=== PATIENT | male | born 1970 | race Caucasian/White ===

== ENCOUNTER 2019-04-13 14:40 | Outpatient (CLI) | payer BC, SELFPAY ==
--- NOTE | ~2019-04-13 | XR_ITS ---
EXAMINATION: XR chest 2V DATE: 04/13/2019 14:59 INDICATION: Acute upper respiratory infection, unspecified. TECHNIQUE: Frontal and lateral views of the chest were obtained. COMPARISON: Rib radiographs 07/23/2018 FINDINGS: The chest demonstrates clear lungs without pneumonia, pleural effusion, or pneumothorax. Th e heart size is normal. There are old healed fractures of left sixth and seventh ribs. There is mild chronic anterior wedging of T11 and T12 vertebral bodies. IMPRESSION: 1. No acute cardiopulmonary disease. Reviewed, dictated and finalized at location A. TECHNICIAN
== END 2019-04-13 14:41 | disposition home or self-care (01) ==
LOC: ANHIMG 14:46
PROVIDERS: PCP Family Medicine; Visit Provider Nurse Practitioner Family
DX: J06.9 Acute upper respiratory infection, unspecified (principal)
CPT/HCPCS: 71046

== ENCOUNTER 2019-09-04 11:59 | Outpatient (CLI) | payer BC, SELFPAY ==
--- NOTE | ~2019-09-04 | XR_ITS ---
EXAMINATION: XR knee RT 3V DATE: 09/04/2019 12:13 INDICATION: Right knee pain. TECHNIQUE: 3 views of right knee were obtained. COMPARISON: None. FINDINGS: Bone alignment is normal. No fracture. There is mild tricompartmental osteoarthritis charac terized by tiny marginal osteophytes. No knee joint effusion. IMPRESSION: 1. Mild right knee osteoarthritis. Reviewed, dictated and finalized at location A.
== END 2019-09-04 12:00 | disposition home or self-care (01) ==
LOC: ANHIMG 12:03
PROVIDERS: PCP Family Medicine; Visit Provider Nurse Practitioner Family
DX: M17.11 Unilateral primary osteoarthritis, right knee (principal)
CPT/HCPCS: 73562